=== PATIENT | male | born 1940 | race Two or more races ===

== ENCOUNTER 2020-08-07 18:09 | Emergency (ER) | payer OTHER ==
[~2020-08-07] VITALS: Ht 162.6 cm; Wt 68.0 kg
[2020-08-07] MEDS ORDERED: LEVOTHYROXINE25 MCG (18:27)
[2020-08-07] MEDS ORDERED: LASIX20 MG (18:27)
[2020-08-07] MEDS ORDERED: CARVEDILOL12.5 MG (18:28)
[2020-08-07] MEDS ORDERED: CATAPRES0.3 MG (18:28)
[2020-08-07] MEDS ORDERED: CALCIUM500 M2 (18:28)
[2020-08-07] MEDS ORDERED: ENALAPRIL MALEAT5 MG (18:29)
== END 2020-08-07 22:19 | disposition home or self-care (01) ==
LOC: ER 18:09
DX: S00.83XA Contusion of other part of head, initial encounter (principal); W07.XXXA Fall from chair, initial encounter; Y93.89 Activity, other specified; Y92.098 Other place in other non-institutional residence as the place of occurrence of the external cause; Y99.8 Other external cause status